=== PATIENT | female | born 1980 | race Caucasian/White ===

== ENCOUNTER 2016-08-05 21:04 | Emergency (ER) | payer SELFPAY ==
[2016-08-05 21:06] VITALS: BP 140/84; PULSE 120; RESP 16; TEMP 98.4; O2SAT 97
== END 2016-08-05 23:23 | disposition left against medical advice (07) ==
LOC: NED 21:04
DX: Z53.29 Procedure and treatment not carried out because of patient's decision for other reasons (principal)
CPT/HCPCS: 99281